=== PATIENT | female | born 1945 | race African-American/Black ===

== ENCOUNTER 2017-05-16 16:38 | Outpatient (RCR) | payer OTHER | END 2017-05-17 | disposition home or self-care (01) | LOC: PTY 16:38 | DX: M17.0 Bilateral primary osteoarthritis of knee (principal); Z96.651 Presence of right artificial knee joint ==

== ENCOUNTER 2017-06-13 15:30 | Outpatient (RCR) | payer OTHER | END 2017-06-17 | disposition home or self-care (01) | LOC: PTY 15:30 | DX: M17.0 Bilateral primary osteoarthritis of knee (principal); Z96.651 Presence of right artificial knee joint ==

== ENCOUNTER 2017-06-25 08:54 | Outpatient (RCR) | payer OTHER | END 2017-07-18 | disposition home or self-care (01) | LOC: PTY 08:54 | DX: M17.0 Bilateral primary osteoarthritis of knee (principal); Z96.651 Presence of right artificial knee joint | CPT/HCPCS: 97110; 97140; G0283 ==

== ENCOUNTER 2017-07-23 15:10 | Outpatient (RCR) | payer OTHER | END 2017-08-15 | disposition home or self-care (01) | LOC: PTY 15:10 | DX: M17.0 Bilateral primary osteoarthritis of knee (principal); Z96.651 Presence of right artificial knee joint | CPT/HCPCS: 97032; 97110; 97140; G0283 ==

== ENCOUNTER 2017-08-20 15:15 | Outpatient (RCR) | payer OTHER | END 2017-09-15 | disposition home or self-care (01) | LOC: PTY 15:15 | DX: M17.0 Bilateral primary osteoarthritis of knee (principal); Z96.651 Presence of right artificial knee joint | CPT/HCPCS: 97110; 97140; G0283 ==

== ENCOUNTER 2017-09-17 15:15 | Outpatient (RCR) | payer OTHER | END 2017-10-15 | disposition home or self-care (01) | LOC: PTY 15:15 | DX: Z96.651 Presence of right artificial knee joint (principal) | CPT/HCPCS: 97032; 97110; 97140; G0283 ==

== ENCOUNTER 2017-10-22 15:18 | Outpatient (RCR) | payer OTHER | END 2017-11-15 | disposition home or self-care (01) | LOC: PTY 15:18 | DX: R26.89 Other abnormalities of gait and mobility (principal); Z96.651 Presence of right artificial knee joint ==

== ENCOUNTER 2017-11-19 15:03 | Outpatient (RCR) | payer OTHER | END 2017-12-15 | disposition home or self-care (01) | LOC: PTY 15:03 | DX: Z47.1 Aftercare following joint replacement surgery (principal); Z96.651 Presence of right artificial knee joint | CPT/HCPCS: 97032; 97110; G0283 ==